=== PATIENT | female | born 1930 | race Caucasian/White ===

== ENCOUNTER → 2016-08-14 | Outpatient (CLI) | payer MEDICARE ==
--- NOTE | 2016-08-14 10:10 | RAD ---
EXAM DESCRIPTION: XR HIP 2 OR MORE VIEWSXR HIP 2 OR MORE VIEWS CLINICAL HISTORY: 86 y/o ,F, CLOSED FX OF FEMUR COMPARISON: None. IMPRESSION: Left hip arthroplasty. Negative for hardware failure, fracture or osteolysis. Electronically signed by: Chencho Kaminski MD 08/14/2016 10:09
--- NOTE | 2016-08-14 10:11 | RAD ---
EXAM DESCRIPTION: Pelvis series. CLINICAL HISTORY: Pelvic pain. COMPARISON: None. TECHNIQUE: One view was submitted for evaluation. FINDINGS: Left hip arthroplasty. There is considerable degenerative change of the right hip with joint space loss and osteophyte formation. Degenerative change of pubic symphysis also noted. No fracture, dislocation, or radiopaque foreign body is seen. Pelvic ring appears intact. Soft tissues are unremarkable. IMPRESSION: Considerable degenerative change of right hip and pubic symphysis. Electronically signed by: Chencho Kaminski MD 08/14/2016 10:10
== END ==
LOC: RAD 09:19
PROVIDERS: ATTEND Orthopaedic Surgery
DX: S72.002D Fracture of unspecified part of neck of left femur, subsequent encounter for closed fracture with routine healing (principal); Z96.642 Presence of left artificial hip joint

== ENCOUNTER → 2016-10-17 | Outpatient (CLI) | payer MEDICARE ==
--- NOTE | 2016-10-17 19:34 | RAD ---
Procedure: XR HIP 2 OR MORE VIEWS Exam Date: 10/17/2016 12:00 AM CDT Ordering Provider: HARMAN RIVERA Clinical Indication: CLOSED FX OF FEMUR Comparison: August 14, 2016 FINDINGS: Stable total hip arthroplasty with cemented femoral component. No evidence of periprosthetic fracture or osteolysis. Bone metal interface and bone cement interfaces are unremarkable. Mild heterotopic ossification about the greater trochanter. No soft tissue abnormality. Impression: Stable appearance of cemented bipolar left total hip arthroplasty in place without complication. Electronically signed by: James Enamorado MD 10/17/2016 7:34 PM CDT
--- NOTE | 2016-10-17 19:36 | RAD ---
Procedure: XR PELVIS 1-2 VIEWS Exam Date: 10/17/2016 12:00 AM CDT Ordering Provider: HARMAN RIVERA Clinical Indication: CLOSED FX OF FEMUR Comparison: August 14, 2016 FINDINGS: Stable left total hip arthroplasty. 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 There is no fracture or dislocation. The sacroiliac joints demonstrates mild osteoarthritis. The pubic symphysis again demonstrates mild degeneration. There are no lytic or sclerotic lesions. There are no suspicious calcifications. Impression: 1. Nonacute exam of the pelvis and each hip. Electronically signed by: James Enamorado MD 10/17/2016 7:35 PM CDT
== END ==
LOC: RAD 09:25
PROVIDERS: ATTEND Orthopaedic Surgery
DX: S72.002D Fracture of unspecified part of neck of left femur, subsequent encounter for closed fracture with routine healing (principal); Z96.642 Presence of left artificial hip joint

== ENCOUNTER → 2017-02-11 | Outpatient (CLI) | payer MEDICARE | END | disposition home or self-care (01) | LOC: NC 10:36 | PROVIDERS: ATTEND Family Medicine | DX: I11.0 Hypertensive heart disease with heart failure (principal); I50.30 Unspecified diastolic (congestive) heart failure; E78.5 Hyperlipidemia, unspecified; R30.0 Dysuria ==

== ENCOUNTER → 2017-02-25 | Outpatient (CLI) | payer MEDICARE | END | disposition home or self-care (01) | LOC: NC 15:55 | PROVIDERS: ATTEND Family Medicine | DX: R30.0 Dysuria (principal) ==

== ENCOUNTER 2017-07-20 16:49 | Emergency (ER) | payer MEDICARE ==
[2017-07-20] MEDS ORDERED: IPRATROPIUM/ALBUTEROL 3 ML VIAL NEB ONE (17:46)
--- NOTE | 2017-07-20 17:50 | ED.PDOC ---
History of Present Illness - General Source: patient, family Exam Limitations: no limitations - History of Present Illness Comments: PT PRESENTS TO THE ED WITH A 3 DAY HISTORY OF SUBJECTIVE FEVER, COUGH AND CONGESTION. PT REPORTS EXPOSURE TO INFLUENZA VIA HOME HEALTH AIDE. Cough Quality/Degree: productive cough Possible Cause: illness exposure Improving Factors: nothing Worsening Factors: nothing Associated Symptoms: cough, dizziness, nasal congestion, shortness of breath, wheezing Respiratory Risk Factors: exposure to illness <Patrick Leigh - Last Filed: 07/20/17 17:48> <James Del Toro - Last Filed: 07/20/17 19:59> - General Chief Complaint: Respiratory Problem Stated Complaint: COUGH AND CONGESTION Time Seen by Provider: 07/20/17 17:45 - History of Present Illness Allergies/Adverse Reactions: Allergies Penicillins Allergy (Verified 07/20/17 18:04) Home Medications: Ambulatory Orders Celecoxib [Celebrex] 200 mg PO DAILY 12/28/13 Albuterol Sulfate [Proair Hfa] 2 puff INH Q6H PRN 07/05/16 Atorvastatin Calcium [Lipitor] 10 mg PO DAILY 07/05/16 Furosemide Tab [Lasix Tab] 40 mg PO DAILY PRN 07/05/16 Metoprolol Succinate [Toprol Xl] 25 mg PO DAILY 07/05/16 Potassium Chloride Tab [Micro-K] 10 meq PO DAILY PRN 07/05/16 Valsartan [Diovan] 320 mg PO BEDTIME 07/05/16 Venlafaxine HCl [Effexor Xr] 3 ea PO DAILY 07/05/16 HYDROcodone 5MG/APAP 325MG [[place] 5/325] 1 - 2 ea PO Q4H PRN #0 tab 07/12/16 Rivaroxaban [Xarelto] 10 mg PO DAILY #29 tab 07/12/16 Azithromycin [Zithromax Z-Flako] 1 ea PO DAILY #1 pack 07/20/17 Dextromethorphan-Guaifenesin [Delsym Cough + Chest Ryan 5-100 mg/5Ml] 10 ml PO BID 5 Days #100 ml 07/20/17 Review of Systems - Review of Systems Constitutional: States: chills, fever, malaise EENTM: States: nose congestion. Denies: throat pain Respiratory: States: see HPI, cough, short of breath Cardiology: Denies: chest pain, palpitations Gastrointestinal/Abdominal: States: nausea. Denies: abdominal pain, diarrhea, vomiting Genitourinary: Denies: dysuria, frequency Musculoskeletal: Denies: joint pain, joint swelling Skin: Denies: dryness, lesions Neurological: Denies: headache, numbness <Patrick Leigh - Last Filed: 07/20/17 17:48> Past Medical History (General) - Patient Medical History Hx Seizures: No Hx Stroke: No Hx Asthma: No Hx of COPD: No Hx Congestive Heart Failure: Yes Hx Pacemaker: No Hx Hypertension: Yes Hx Diabetes: No Hx Renal Disease: No Hx Cancer: Yes Hx MRSA: No - Vaccination History Hx Tetanus, Diphtheria Vaccination: No Hx Influenza Vaccination: No Hx Pneumococcal Vaccination: Yes - Social History Hx Tobacco Use: No Hx Alcohol Use: No Hx Substance Use: No Hx Physical Abuse: No Hx Emotional Abuse: No <Patrick Leigh - Last Filed: 07/20/17 17:48> Family Medical History - Family History Mother Living Status: Hx Family Asthma: Yes Hx Family Congestive Heart Failure: Yes Hx Family Hypertension: Yes Hx Family Stroke: No Hx Cardiac Disease: Yes Hx Family Diabetes: No Hx Family Cancer: Yes <Patrick Leigh - Last Filed: 07/20/17 17:48> Physical Exam - Physical Exam General Appearance: Alert, Frail, No apparent distress ENT Exam: hearing grossly normal Respiratory: no respiratory distress, no accessory muscle use, wheezing Cardiovascular/Chest: regular rate, rhythm, no murmur Gastrointestinal/Abdominal: non tender, soft Extremity: non-tender, normal inspection Neurologic: alert, normal mood/affect, oriented x 3 Skin Exam: normal color, warm/dry <Patrick Leigh - Last Filed: 07/20/17 17:48> Progress - Progress Progress: 07/20/17 19:48 THE CHEST X RAY IS REPORTED NEGATIVE FOR ACUTE PROCESS. THE INFLUENZA TEST IS POSITIVE AND SHE CONTINUES WITH A NON PRODUCTIVE ,COUGH. HER WBC'S ARE ELEVATED AT 17,000. SHE WILL BE DISCHARGED TO F/U WITH HER IN TWO DAYS OR RETURN IF CONDITION WORSENS. <James Del Toro - Last Filed: 07/20/17 19:59> Departure <Patrick Leigh - Last Filed: 07/20/17 17:48> - Departure Diet: resume usual diet Activity: increase activity as tolerated <James Del Toro - Last Filed: 07/20/17 19:59> - Departure Clinical Impression: Influenza Acute bronchitis Qualifiers: Bronchitis organism: other organism Qualified Code(s): J20.8 - Acute bronchitis due to other specified organisms Disposition: Discharge to Home or Self Care Condition: Good Departure Forms: ED Discharge - Pt. Copy, Patient Portal Self Enrollment Instructions: Influenza Prescriptions: Azithromycin [Zithromax Z-Flako] 1 ea PO DAILY #1 pack Dextromethorphan-Guaifenesin [Delsym Cough + Chest Ryan 5-100 mg/5Ml] 10 ml PO BID 5 Days #100 ml Home Medications: Ambulatory Orders Celecoxib [Celebrex] 200 mg PO DAILY 12/28/13 Albuterol Sulfate [Proair Hfa] 2 puff INH Q6H PRN 07/05/16 Atorvastatin Calcium [Lipitor] 10 mg PO DAILY 07/05/16 Furosemide Tab [Lasix Tab] 40 mg PO DAILY PRN 07/05/16 Metoprolol Succinate [Toprol Xl] 25 mg PO DAILY 07/05/16 Potassium Chloride Tab [Micro-K] 10 meq PO DAILY PRN 07/05/16 Valsartan [Diovan] 320 mg PO BEDTIME 07/05/16 Venlafaxine HCl [Effexor Xr] 3 ea PO DAILY 07/05/16 HYDROcodone 5MG/APAP 325MG [[place] 5/325] 1 - 2 ea PO Q4H PRN #0 tab 07/12/16 Rivaroxaban [Xarelto] 10 mg PO DAILY #29 tab 07/12/16 Azithromycin [Zithromax Z-Flako] 1 ea PO DAILY #1 pack 07/20/17 Dextromethorphan-Guaifenesin [Delsym Cough + Chest Ryan 5-100 mg/5Ml] 10 ml PO BID 5 Days #100 ml 07/20/17
--- NOTE | 2017-07-20 18:00 | RAD ---
EXAM DESCRIPTION: Chest,1 View CLINICAL HISTORY: 87 years Female, COUGH/FEVER COMPARISON: July 05, 2016 TECHNIQUE: Portable AP view FINDINGS: Large retrocardiac hiatal hernia is again seen. No infiltrates have developed. The cardiac silhouette and mediastinum are unchanged. IMPRESSION: No significant changes. No infiltrates Electronically signed by: Yasir Romero 07/20/2017 5:59 PM LAST INSERTER
[2017-07-20] MEDS ORDERED: cefTRIAXone SODIUM 1 GM VIAL IM ONE (19:51)
[2017-07-20] MEDS ORDERED: LIDOCAINE 1% 10 ML VIAL INJ ONE (19:56)
[2017-07-20 20:27] VITALS: BP 160/82; TEMP 101; O2SAT 92
== END 2017-07-20 20:25 | disposition home or self-care (01) ==
LOC: ER 16:49
DX: J11.1 Influenza due to unidentified influenza virus with other respiratory manifestations (principal); J20.9 Acute bronchitis, unspecified; I11.0 Hypertensive heart disease with heart failure; I10 Essential (primary) hypertension; Z85.9 Personal history of malignant neoplasm, unspecified; Z88.0 Allergy status to penicillin
CPT/HCPCS: 36415; 71010; 80053; 85025; 87502; 94640; 94760; J0696; J7620

== ENCOUNTER 2017-08-22 18:28 | Emergency (ER) | payer MEDICARE ==
[2017-08-22 18:47] VITALS: TEMP 98.6; O2SAT 96
[2017-08-22] MEDS ORDERED: LIDOCAINE 1% W/ EPINEPHRINE 20 ML VIAL INJ ONE (19:12)
--- NOTE | 2017-08-22 19:16 | CT ---
EXAM: Head CLINICAL INDICATION: 87-year-old female status post fall with forehead laceration. COMPARISON: None. TECHNIQUE: CT brain without contrast. This exam was performed according to our departmental dose optimization program which includes use of automated exposure control, adjustment of the mA and/or kV according to patient size and/or use of iterative reconstruction technique. FINDINGS: Examination findings are slightly limited by motion artifact. Multifocal regions of patchy hypoattenuation are present in a subcortical and periventricular deep white matter distribution, nonspecific; however, most likely represent small vessel ischemic disease, age indeterminate. The ventricles, sulci, and cisterns are symmetric and unremarkable. The treviño-white matter differentiation is preserved. There is no mass effect, midline shift, intra- or extra-axial fluid collection/acute hemorrhage. The osseous structures are unremarkable. The paranasal sinuses reveal layering fluid within the dependent LEFT maxillary sinus and mastoid air cells are clear. Dermal irregularity and soft tissue swelling of the forehead. IMPRESSION: 1. No acute intracranial abnormalities. Nonspecific white matter change most likely small vessel ischemic disease, age indeterminate. 2. CT is insensitive for early evaluation of acute stroke. If there is clinical concern for acute ischemia, an MRI may be considered. Electronically signed by: Sydni Corrales MD 08/22/2017 7:15 PM [employer]THER[employer]WORK ARCHITECT
[2017-08-22] MEDS ORDERED: SULFA/TRIMETH 800/160 (DS) TAB 1 EA TAB PO ONE (19:28)
[2017-08-22] MEDS ORDERED: TETANUS,DIPHTHERIA,PERTUSSIS 1 EA SYG IM ONE (19:28)
--- NOTE | 2017-08-22 19:30 | ED.PDOC ---
History of Present Illness - General Chief Complaint: Laceration Stated Complaint: Laceration to forehead Time Seen by Provider: 08/22/17 19:09 Source: patient Exam Limitations: no limitations - History of Present Illness Initial Comments: the patient is an 87-year-old female who tripped and fell while carrying a child in her house today. The child apparently landed fine but the patient hit her forehead and sustained a 1 inch by half inch laceration to the frontal scalp i.e. the forehead. No loss of consciousness. This occurred immediately prior to arrival. No other injuries. She also has asmall ones in the laceration to the bridge of her nose that is not bleeding. She did have some epistaxis at first but that is not bleeding. Her distal nasal septum at least appears to be fairly straight but there is some mild swelling. She is alert and oriented and in no acute distress. Timing/Duration: 1/2 hour Severity: moderate Improving Factors: nothing Worsening Factors: nothing Associated Symptoms: denies symptoms Allergies/Adverse Reactions: Allergies Penicillins Allergy (Verified 07/24/17 17:13) Rash Home Medications: Ambulatory Orders Celecoxib [Celebrex] 200 mg PO DAILY 12/28/13 Furosemide Tab [Lasix Tab] 40 mg PO TUFR 07/05/16 Metoprolol Succinate [Toprol Xl] 25 mg PO DAILY 07/05/16 Potassium Chloride Tab [Micro-K] 10 meq PO TUFR 07/05/16 Valsartan [Diovan] 320 mg PO BEDTIME 07/05/16 Venlafaxine HCl [Effexor Xr] 3 ea PO DAILY 07/05/16 Rosuvastatin Calcium [Crestor] 20 mg PO DAILY 07/24/17 Sulfa/Trimeth 800/160 (Ds) Tab [Bactrim DS Tab] 1 ea PO DAILY #5 tab 08/22/17 Review of Systems - Review of Systems Constitutional: States: no symptoms reported EENTM: States: no symptoms reported Respiratory: States: no symptoms reported Cardiology: States: no symptoms reported Gastrointestinal/Abdominal: States: no symptoms reported Genitourinary: States: no symptoms reported Musculoskeletal: States: no symptoms reported Skin: States: see HPI Neurological: States: headache Endocrine: States: no symptoms reported All other Systems: No Change from Baseline Past Medical History (General) - Patient Medical History Hx Seizures: No Hx Stroke: No Hx Asthma: No Hx of COPD: No Hx Congestive Heart Failure: Yes Hx Pacemaker: No Hx Hypertension: Yes Hx Diabetes: No Hx Renal Disease: No Hx Cancer: Yes - Breast Hx MRSA: No Surgical History: Hysterectomy, other - Vaccination History Hx Tetanus, Diphtheria Vaccination: No Hx Influenza Vaccination: No Hx Pneumococcal Vaccination: Yes - Social History Hx Tobacco Use: No Hx Alcohol Use: No Hx Substance Use: No Hx Physical Abuse: No Hx Emotional Abuse: No Family Medical History - Family History Mother Living Status: Hx Family Asthma: Yes Hx Family Congestive Heart Failure: Yes Hx Family Hypertension: Yes Hx Family Stroke: No Hx Cardiac Disease: Yes Hx Family Diabetes: No Hx Family Cancer: Yes Physical Exam - Physical Exam General Appearance: Alert, No apparent distress Eye Exam: bilateral normal Ears, Nose, Throat: hearing grossly normal, normal ENT inspection Neck: full range of motion, supple Respiratory: lungs clear, normal breath sounds, no respiratory distress, no accessory muscle use Cardiovascular/Chest: normal peripheral pulses, regular rate, rhythm, no edema Peripheral Pulses: radial,right: 2+, radial,left: 2+, dorsalis pedis,right: 2+, dorsalis pedis,left: 2+ Rectal Exam: deferred Back Exam: normal inspection Extremity: non-tender, normal inspection, no pedal edema, normal capillary refill Neurologic: [employer] II-XII nml as tested, alert, normal mood/affect, oriented x 3 Skin Exam: normal color - aceration is present in present illness Comments: Vital Signs - 24 hr 08/22/17 18:38 Temperature 98.6 F Pulse Rate [ 61 Right Radial] Respiratory 18 Rate Blood Pressure 160/68 [Right Arm] O2 Sat by Pulse 96 Oximetry Progress - Progress Progress: 08/22/17 19:30 the patient is a 87-year-old female presenting after a fall with a laceration to her central forehead. Head CT shows no evidence of inner cranial pathology or skull fracture. No clinical evidence is obvious of a concussion. After risk and benefits were explained the patient agreed to proceed with repair. 250 cc of sterile saline were used for irrigation. 2 cc of lidocaine with epinephrine were used for local anesthetic. 4 simple sutures of 4-0 Ethilon were used for reapproximation. Sutures need to come out in 7-10 days. estimated blood loss is less than 10 cc. The patient will be placed on Bactrim daily for 5 days primarily for prophylaxis. First dose was given here today along with a tetanus shot. ER warnings were given for any significant worsening. Departure - Departure Clinical Impression: Accidental laceration Disposition: Discharge to Home or Self Care Condition: Fair Departure Forms: ED Discharge - Pt. Copy, Patient Portal Self Enrollment Instructions: DI for Laceration Repair, DI for Laceration Repair -- Simple Diet: regular diet Activity: increase activity as tolerated Referrals: Danilo Leger MD [Primary Care Provider] - 1-2 Weeks Prescriptions: Sulfa/Trimeth 800/160 (Ds) Tab [Bactrim DS Tab] 1 ea PO DAILY #5 tab Home Medications: Ambulatory Orders Celecoxib [Celebrex] 200 mg PO DAILY 12/28/13 Furosemide Tab [Lasix Tab] 40 mg PO TUFR 07/05/16 Metoprolol Succinate [Toprol Xl] 25 mg PO DAILY 07/05/16 Potassium Chloride Tab [Micro-K] 10 meq PO TUFR 07/05/16 Valsartan [Diovan] 320 mg PO BEDTIME 07/05/16 Venlafaxine HCl [Effexor Xr] 3 ea PO DAILY 07/05/16 Rosuvastatin Calcium [Crestor] 20 mg PO DAILY 07/24/17 Sulfa/Trimeth 800/160 (Ds) Tab [Bactrim DS Tab] 1 ea PO DAILY #5 tab 08/22/17 Additional Instructions: the patient is a 87-year-old female presenting after a fall with a laceration to her central forehead. Head CT shows no evidence of inner cranial pathology or skull fracture. No clinical evidence is obvious of a concussion. After risk and benefits were explained the patient agreed to proceed with repair. 250 cc of sterile saline were used for irrigation. 2 cc of lidocaine with epinephrine were used for local anesthetic. 4 simple sutures of 4-0 Ethilon were used for reapproximation. Sutures need to come out in 7-10 days. estimated blood loss is less than 10 cc. The patient will be placed on Bactrim daily for 5 days primarily for prophylaxis. First dose was given here today along with a tetanus shot. ER warnings were given for any significant worsening.
[2017-08-22 19:53] VITALS: BP 157/97
== END 2017-08-22 19:59 | disposition home or self-care (01) ==
LOC: ER 18:28
DX: S01.81XA Laceration without foreign body of other part of head, initial encounter (principal); I11.0 Hypertensive heart disease with heart failure; I50.9 Heart failure, unspecified; Z85.3 Personal history of malignant neoplasm of breast; Z88.0 Allergy status to penicillin; Z79.899 Other long term (current) drug therapy; W01.0XXA Fall on same level from slipping, tripping and stumbling without subsequent striking against object, initial encounter; Y92.009 Unspecified place in unspecified non-institutional (private) residence as the place of occurrence of the external cause

== ENCOUNTER 2017-08-23 14:43 | Emergency (ER) | payer MEDICARE ==
[2017-08-23] MEDS ORDERED: PROMETHAZINE HCL INJ 25 MG/ML VIAL IM ONE ×2 (15:02→15:04)
--- NOTE | 2017-08-23 15:02 | ED.PDOC ---
History of Present Illness - General Chief Complaint: General Stated Complaint: Nausea, vomiting after fall last night Time Seen by Provider: 08/23/17 14:50 Source: patient, family - History of Present Illness Initial Comments: Megan De La O 87 y/o female brought by daughter with nausea/vomiting after slipping on the wooden floor and fell face down.She was seen here initially after incident and had suteures placed on skin wound forehead and Head CT-done no acute findings noted .But today had nausea and vomiting and feels dizzy. Timing/Duration: 24 hours Severity: moderate Improving Factors: nothing, eating Associated Symptoms: nausea/vomiting Allergies/Adverse Reactions: Allergies Penicillins Allergy (Verified 08/23/17 14:56) Rash Home Medications: Ambulatory Orders Celecoxib [Celebrex] 200 mg PO DAILY 12/28/13 Furosemide Tab [Lasix Tab] 40 mg PO TUFR 07/05/16 Metoprolol Succinate [Toprol Xl] 25 mg PO DAILY 07/05/16 Potassium Chloride Tab [Micro-K] 10 meq PO TUFR 07/05/16 Valsartan [Diovan] 320 mg PO BEDTIME 07/05/16 Venlafaxine HCl [Effexor Xr] 3 ea PO DAILY 07/05/16 Rosuvastatin Calcium [Crestor] 20 mg PO DAILY 07/24/17 Sulfa/Trimeth 800/160 (Ds) Tab [Bactrim DS Tab] 1 ea PO DAILY #5 tab 08/22/17 Meclizine HCl [Meclizine 25] 25 mg PO Q6HRS PRN #30 tab 08/23/17 Ondansetron [Zofran Odt] 4 mg PO Q8HRS PRN #10 tab 08/23/17 Review of Systems - Review of Systems Constitutional: States: no symptoms reported EENTM: States: no symptoms reported Respiratory: States: no symptoms reported Gastrointestinal/Abdominal: States: no symptoms reported Genitourinary: States: no symptoms reported Neurological: States: see HPI All other Systems: Reviewed and Negative, No Change from Baseline Past Medical History (General) - Patient Medical History Hx Seizures: No Hx Stroke: No Hx Asthma: No Hx of COPD: No Hx Congestive Heart Failure: Yes Hx Pacemaker: No Hx Hypertension: Yes Hx Diabetes: No Hx Renal Disease: No Hx Cancer: Yes - Breast Hx MRSA: No Surgical History: other - mastectomy bilateral - Vaccination History Hx Tetanus, Diphtheria Vaccination: No Hx Influenza Vaccination: No Hx Pneumococcal Vaccination: Yes - Social History Hx Tobacco Use: No Hx Alcohol Use: No Hx Substance Use: No Hx Physical Abuse: No Hx Emotional Abuse: No - Activities of Daily Living Grooming Ability: Independent Eating (Feeding) Ability: Independent Toileting Ability: Independent Family Medical History - Family History Mother Living Status: Hx Family Asthma: Yes Hx Family Congestive Heart Failure: Yes Hx Family Hypertension: Yes Hx Family Stroke: Yes - dad age 90 Hx Cardiac Disease: Yes Hx Family Diabetes: No Hx Family Cancer: Yes Physical Exam - Physical Exam General Appearance: Alert, Comfortable, No apparent distress Eye Exam: bilateral normal Ears, Nose, Throat: hearing grossly normal, normal ENT inspection, normal pharynx Neck: full range of motion, supple, normal inspection Respiratory: chest non-tender, lungs clear, normal breath sounds Cardiovascular/Chest: normal peripheral pulses, regular rate, rhythm, no murmur Peripheral Pulses: radial,right: 2+, radial,left: 2+ Gastrointestinal/Abdominal: normal bowel sounds, soft Back Exam: no CVA tenderness, no vertebral tenderness Extremity: no pedal edema, no calf tenderness Neurologic: no motor/sensory deficits, alert, oriented x 3 Skin Exam: other - ecchymosis right lower lid and sututred laceration forehead Progress - EKG/XRAY/CT CT Ordered: Yes - no acute abnormality Departure - Departure Clinical Impression: Fall Qualifiers: Encounter type: subsequent encounter Qualified Code(s): W19.XXXD - Unspecified fall, subsequent encounter Contusion of head Qualifiers: Encounter type: initial encounter Contusion of head detail: other part of head Qualified Code(s): S00.83XA - Contusion of other part of head, initial encounter Concussion Qualifiers: Encounter type: initial encounter Loss of consciousness presence/duration: without LOC Qualified Code(s): S06.0X0A - Concussion without loss of consciousness, initial encounter Nausea & vomiting Qualifiers: Vomiting type: unspecified Vomiting Intractability: unspecified Qualified Code( s): R11.2 - Nausea with vomiting, unspecified Time of Disposition: 16:15 Disposition: Discharge to Home or Self Care Condition: Fair Departure Forms: ED Discharge - Pt. Copy, Patient Portal Self Enrollment Instructions: DI for Postconcussion Syndrome, Concussion, DI for Concussion Diet: other - small frequent meal Referrals: Danilo Leger MD [Primary Care Provider] - 1-2 Weeks Prescriptions: Meclizine HCl [Meclizine 25] 25 mg PO Q6HRS PRN #30 tab PRN Reason: Dizziness Ondansetron [Zofran Odt] 4 mg PO Q8HRS PRN #10 tab PRN Reason: Nausea Home Medications: Ambulatory Orders Celecoxib [Celebrex] 200 mg PO DAILY 12/28/13 Furosemide Tab [Lasix Tab] 40 mg PO TUFR 07/05/16 Metoprolol Succinate [Toprol Xl] 25 mg PO DAILY 07/05/16 Potassium Chloride Tab [Micro-K] 10 meq PO TUFR 07/05/16 Valsartan [Diovan] 320 mg PO BEDTIME 07/05/16 Venlafaxine HCl [Effexor Xr] 3 ea PO DAILY 07/05/16 Rosuvastatin Calcium [Crestor] 20 mg PO DAILY 07/24/17 Sulfa/Trimeth 800/160 (Ds) Tab [Bactrim DS Tab] 1 ea PO DAILY #5 tab 08/22/17 Meclizine HCl [Meclizine 25] 25 mg PO Q6HRS PRN #30 tab 08/23/17 Ondansetron [Zofran Odt] 4 mg PO Q8HRS PRN #10 tab 08/23/17 Additional Instructions: Follow up with primary Md 08/24/2017 as needed
[2017-08-23] MEDS ORDERED: DEXAMETHASONE INJ 4 MG/ML VIAL IM ONE (15:04)
--- NOTE | 2017-08-23 15:54 | CT ---
EXAM DESCRIPTION: Head CLINICAL HISTORY: head contusion/NV COMPARISON: August 22 2016 TECHNIQUE: Contiguous axial images of the brain were obtained without the administration of intravenous contrast.This exam was performed according to our departmental dose-optimization program, which includes automated exposure control, adjustment of the mA and/or kV according to patient size and/or use of iterative reconstruction technique. FINDINGS: There is no acute intracranial hemorrhage or mass effect. Areas of low attenuation in the periventricular and subcortical white matter are nonspecific but suggestive of small vessel disease. There is generalized atrophy. Ventricular system is within normal limits. There is adequate treviño-white matter differentiation. There is no skull fracture. There is atherosclerosis. Fluid level within the left maxillary sinus could be secondary to acute sinusitis changes. There is also patchy opacification of the left frontal sinus. Soft tissue swelling is noted at the forehead level. IMPRESSION: No acute intracranial abnormalities. Electronically signed by: Bobby Lewis MD 08/23/2017 3:53 PM [facility]
[2017-08-23 18:10] VITALS: TEMP 97.8; O2SAT 94
== END 2017-08-23 16:20 | disposition home or self-care (01) ==
LOC: ER 14:43
DX: S06.0X0D Concussion without loss of consciousness, subsequent encounter (principal); S00.11XD Contusion of right eyelid and periocular area, subsequent encounter; I11.0 Hypertensive heart disease with heart failure; I50.9 Heart failure, unspecified; Z85.3 Personal history of malignant neoplasm of breast; Z90.13 Acquired absence of bilateral breasts and nipples; W01.0XXD Fall on same level from slipping, tripping and stumbling without subsequent striking against object, subsequent encounter
CPT/HCPCS: 70450; J1100; J2550

== ENCOUNTER → 2018-09-13 | Outpatient (CLI) | payer MEDICARE ==
--- NOTE | 2018-09-14 09:50 | MRI ---
Study: MRI of the Left Hip. Indication: HIP PAIN Technique: Multiplanar, multi sequence MRI of the left hip was obtained without intravenous contrast. Comparison: None. Findings: Left total hip arthroplasty noted with significant susceptibility artifact despite metal artifact reduction techniques. This makes evaluation for periprosthetic fracture and osteolysis markedly difficult. No gross periprosthetic fluid collection identified. 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 No acute fracture or osteonecrosis. Lower lumbar disc disease. Tendinosis bilateral hamstring tendon origins. No acute high-grade pelvic tendon tear. As best noted on axial STIR image 15 within the posteromedial right acetabular wall there is a 9 mm ovoid STIR hyperintense and T1 hypointense indeterminate lesion. Impression: Left total hip arthroplasty with pronounced susceptibility artifact despite metal artifact reduction techniques. No gross periprosthetic fracture or periprosthetic fluid collection identified. 9 mm indeterminate lesion within the posteromedial right acetabular wall. This could reflect a subchondral cyst, however no definite continuity to the cortex identified. A small marrow replacing lesion cannot be excluded. Correlation with bone scan with SPECT imaging recommended. Additional findings as above. Electronically signed by: Shaquille Casey MD 09/14/2018 9:47 AM [facility]
== END ==
LOC: MRI 14:00
PROVIDERS: ATTEND Family Medicine
DX: M25.552 Pain in left hip (principal); Z96.642 Presence of left artificial hip joint

== ENCOUNTER → 2019-02-25 | Outpatient (CLI) | payer MEDICARE | LOC: NC 13:01 | PROVIDERS: ATTEND Family Medicine | DX: I11.0 Hypertensive heart disease with heart failure (principal); I50.9 Heart failure, unspecified; E03.9 Hypothyroidism, unspecified; E78.5 Hyperlipidemia, unspecified ==

== ENCOUNTER → 2019-05-11 | Outpatient (CLI) | payer MEDICARE ==
--- NOTE | 2019-05-11 12:57 | CT ---
PROVIDED CLINICAL HISTORY/REASON FOR EXAM: ACUTE POST TRAUMATIC HEADACHE TECHNIQUE: Volumetric CT data of the brain was obtained without intravenous contrast. This exam was performed according to our departmental dose-optimization program, which includes automated exposure control, adjustment of the mA and/or kV according to patient size and/or use of iterative reconstruction technique. COMPARISON: 08/23/2017 FINDINGS: Age-related volume loss and chronic small vessel ischemic change. Septum pellucidum and third ventricle are midline. No acute infarction is evident by CT. No acute hemorrhage is present. No mass or mass effect is present. Frontal scalp soft tissue swelling/hematoma. No calvarial fracture identified. The visualized paranasal sinuses are unremarkable. IMPRESSION: 1. No acute intracranial hemorrhage or infarction. 2. Frontal scalp soft tissue swelling/hematoma. Electronically signed by: Gideon Armenta MD 05/11/2019 12:55 PM CDT
== END ==
LOC: CT 12:28
PROVIDERS: ATTEND Physician Assistant
DX: G44.319 Acute post-traumatic headache, not intractable (principal); S00.03XA Contusion of scalp, initial encounter

== ENCOUNTER → 2019-06-28 | Outpatient (CLI) | payer MEDICARE | LOC: NC 11:28 | PROVIDERS: ATTEND Family Medicine | DX: E78.5 Hyperlipidemia, unspecified (principal) ==

== ENCOUNTER → 2020-05-22 | Outpatient (CLI) | payer MEDICARE | LOC: GMAE 16:50 | PROVIDERS: ATTEND Family Medicine | DX: E03.9 Hypothyroidism, unspecified (principal); E78.2 Mixed hyperlipidemia; I10 Essential (primary) hypertension ==

== ENCOUNTER 2020-07-04 13:04 | Inpatient (IN) | payer MEDICARE ==
--- NOTE | 2020-07-04 13:20 | ED.PDOC ---
History of Present Illness - General Chief Complaint: Neuro Symptoms/Deficits Stated Complaint: possible stroke Time Seen by Provider: 07/04/20 13:18 Source: family - daughter, EMS Exam Limitations: clinical condition - History of Present Illness Initial Comments: PATIENT FOUND UNRESPONSIVE WITH RIGHT SIDED NEGLECT, VERBALLY NON-RESPONSIVE, RIGHT SIDED HEMIPLEGIA AT NOON TODAY, LAST KNOWN NORMAL WAS 23OO LAST NIGHT. Severity: severe Improving Factors: nothing Worsening Factors: nothing Allergies/Adverse Reactions: Allergies Penicillins Allergy (Verified 08/23/17 14:56) Rash Home Medications: Ambulatory Orders Celecoxib [Celebrex] 200 mg PO DAILY 12/28/13 Furosemide Tab [Lasix Tab] 40 mg PO TUFR 07/05/16 Metoprolol Succinate [Toprol Xl] 25 mg PO DAILY 07/05/16 Potassium Chloride Tab [Micro-K] 10 meq PO TUFR 07/05/16 Valsartan [Diovan] 320 mg PO BEDTIME 07/05/16 Venlafaxine HCl [Effexor Xr] 3 ea PO DAILY 07/05/16 Rosuvastatin Calcium [Crestor] 20 mg PO DAILY 07/24/17 Sulfa/Trimeth 800/160 (Ds) Tab [Bactrim DS Tab] 1 ea PO DAILY #5 tab 08/22/17 Meclizine HCl [Meclizine 25] 25 mg PO Q6HRS PRN #30 tab 08/23/17 Ondansetron [Zofran Odt] 4 mg PO Q8HRS PRN #10 tab 08/23/17 Review of Systems - Review of Systems Unable to Obtain Due To: condition, dementia Past Medical History (General) - Patient Medical History Hx Seizures: No Hx Stroke: No Hx Asthma: No Hx of COPD: No Hx Congestive Heart Failure: Yes Hx Pacemaker: No Hx Hypertension: Yes Hx Diabetes: No Hx Renal Disease: No Hx Cancer: Yes - Breast Hx MRSA: No - Vaccination History Hx Tetanus, Diphtheria Vaccination: No Hx Influenza Vaccination: No Hx Pneumococcal Vaccination: Yes - Social History Hx Tobacco Use: No Hx Alcohol Use: No Hx Substance Use: No Hx Physical Abuse: No Hx Emotional Abuse: No Family Medical History - Family History Mother Living Status: Hx Family Asthma: Yes Hx Family Congestive Heart Failure: Yes Hx Family Hypertension: Yes Hx Family Stroke: Yes - dad age 90 Hx Cardiac Disease: Yes Hx Family Diabetes: No Hx Family Cancer: Yes Physical Exam - Physical Exam General Appearance: Other - opens eyes to command, 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, spontaneousl movement of left extremeties only Eye Exam: bilateral normal - 4-5mm fixed ENT Exam: normal ENT inspection Neck: non-tender Respiratory: chest non-tender, lungs clear, normal breath sounds, no respiratory distress, no accessory muscle use Cardiovascular/Chest: normal peripheral pulses, regular rate, rhythm, no edema, no gallop Gastrointestinal/Abdominal: normal bowel sounds, non tender, soft, no organomegaly Back Exam: normal inspection, no CVA tenderness, no vertebral tenderness Extremities Exam: non-tender, no evidence of injury, no edema Mental Status: disoriented x 3, lethargic call center specialist Exam: other - right sided hemiplegia, right sided neglect Skin Exam: normal color, warm/dry, cyanosis Progress - Progress Progress: 07/04/20 18:08 DISCUSSED WITH TELENEUROLOGY, SEE CONSULT, RECOMMENDATION IS OBSERVATION AND MRI, NO FURTHER INTERVENTION IS INDICATED AT THIS TIME. CONSULTED WITH DILCIA Sotomayor WILL ADMIT RECOMMENDED BY TELENEUROLOGY, SUPPORTIVE CARE, CONSULTATION OF PT OT AND ST INDICATED. Departure - Departure Clinical Impression: Acute CVA (cerebrovascular accident) Time of Disposition: 15:00 Disposition: Admit Patient Condition: Poor Home Medications: Ambulatory Orders Celecoxib [Celebrex] 200 mg PO DAILY 12/28/13 Furosemide Tab [Lasix Tab] 40 mg PO TUFR 07/05/16 Metoprolol Succinate [Toprol Xl] 25 mg PO DAILY 07/05/16 Potassium Chloride Tab [Micro-K] 10 meq PO TUFR 07/05/16 Valsartan [Diovan] 320 mg PO BEDTIME 07/05/16 Venlafaxine HCl [Effexor Xr] 3 ea PO DAILY 07/05/16 Rosuvastatin Calcium [Crestor] 20 mg PO DAILY 07/24/17 Sulfa/Trimeth 800/160 (Ds) Tab [Bactrim DS Tab] 1 ea PO DAILY #5 tab 08/22/17 Meclizine HCl [Meclizine 25] 25 mg PO Q6HRS PRN #30 tab 08/23/17 Ondansetron [Zofran Odt] 4 mg PO Q8HRS PRN #10 tab 08/23/17
--- NOTE | 2020-07-04 13:38 | CT ---
EXAM DESCRIPTION: Head: Computed Tomography. CLINICAL HISTORY: possible stroke,right sided weakness COMPARISON: CT scan of the head without contrast April 2019 TECHNIQUE: Non-helical axial scans through the skull and brain, at 5.0 x 21 mm intervals, non-contrast. Coronal and sagittal 2.0 mm reconstructions. Total Exam DLP: 753 mGy-cm. This exam was performed according to our departmental dose-optimization program which includes automated exposure control, adjustment of the mA and/or kV according to patient size and/or use of iterative reconstruction technique; to reduce radiation dose to as low as reasonably achievable (ALARA). Technically difficult study due to patient mental status: Headshaking and moving head within the CT head cradle. FINDINGS: No intra-axial hemorrhage, no mass-effect, and no midline shift. Minimal bilateral periventricular low-density is stable. No abnormal radiodense material in the brain parenchyma. Vascular calcifications anterior and posterior circulations; physiologic calcifications in the pineal gland and choroid plexus. No effacement or displacement of the ventricles, CSF spaces, or subdural spaces. No extra axial fluid collection or hemorrhage. No gross abnormalities of the bony calvarium. Included paranasal sinuses and mastoid air cells are well - aerated. IMPRESSION: 1. No hemorrhage, no mass effect, no midline shift. Stable since the prior head CT scan noncontrast April 2019. Technically limited as described above. 2. CT scans are insensitive for detecting small CVAs in the first 24 hours after onset. Evaluation of the brain stem is also limited. If symptoms persist, consider NON-EMERGENT MRI scan of the brain with diffusion imaging. Electronically signed by: Amanuel Duncan MD 07/04/2020 1:36 PM [facility]
[2020-07-04] MEDS ORDERED: SODIUM CHLORIDE 0.9% 1000ML 1,000 ML ONE (14:18)
[2020-07-04] MEDS ORDERED: SODIUM CHLORIDE 0.9% 1000ML 1,000 ML IVS ONE (14:21)
[2020-07-04] MEDS ORDERED: MIDAZOLAM INJ 5 MG/5 ML VIAL ONE (14:36)
--- NOTE | 2020-07-04 14:54 | RAD ---
Procedure: XR CHEST 1 VIEW Exam Date: 07/04/2020 Ordering Provider: Tavo Aguiar Clinical Indication: confusion Comparison: 07/24/2017 Findings: Borderline cardiomegaly. No focal lung consolidation. No pleural effusion. No pneumothorax. No acute osseous abnormality. Large hiatal hernia. Impression: 1. No acute abnormality in the chest. 2. Large hiatal hernia. Electronically signed by: Jayden Dewitt MD 07/04/2020 2:53 PM [employer]
--- NOTE | 2020-07-04 15:26 | CT ---
EXAM DESCRIPTION: CTA Head (accession [id number]), CTA Neck (accession [id number]) CLINICAL HISTORY: 89 years, Female, CVA COMPARISON: CT head July 04, 2020 TECHNIQUE: Rapid bolus administration of 100 mL of IV contrast was performed with thin-section axial scanning of the brain performed in a dynamic fashion. Reconstructed multiplanar and MIP images created on a separate dedicated workstation are reviewed along with the source axial images and stored in the patient's medical record. FINDINGS: Very large hiatal hernia. Pulmonary apices are clear. Excellent arterial enhancement. Very minimal atherosclerosis. No stenosis. No dissection. Both vertebrals patent with codominance. Balanced anterior, middle, posterior cerebral circulation. No aneurysm. No vasculitis. No large vessel occlusion. IMPRESSION: Negative CTA of the head and neck This exam was performed according to our departmental dose-optimization program, which includes automated exposure control, adjustment of the mA and/or kV according to patient size and/or use of iterative reconstruction technique. Electronically signed by: Erwin Black MD 07/04/2020 3:25 PM [facility]
--- NOTE | 2020-07-04 15:27 | CT ---
EXAM DESCRIPTION: CTA Head (accession [id number]), CTA Neck (accession [id number]) CLINICAL HISTORY: 89 years, Female, CVA COMPARISON: CT head July 04, 2020 TECHNIQUE: Rapid bolus administration of 100 mL of IV contrast was performed with thin-section axial scanning of the brain performed in a dynamic fashion. Reconstructed multiplanar and MIP images created on a separate dedicated workstation are reviewed along with the source axial images and stored in the patient's medical record. FINDINGS: Very large hiatal hernia. Pulmonary apices are clear. Excellent arterial enhancement. Very minimal atherosclerosis. No stenosis. No dissection. Both vertebrals patent with codominance. Balanced anterior, middle, posterior cerebral circulation. No aneurysm. No vasculitis. No large vessel occlusion. IMPRESSION: Negative CTA of the head and neck This exam was performed according to our departmental dose-optimization program, which includes automated exposure control, adjustment of the mA and/or kV according to patient size and/or use of iterative reconstruction technique. Electronically signed by: Erwin Black MD 07/04/2020 3:25 PM [facility]
[2020-07-04] MEDS ORDERED: SODIUM CHLORIDE 0.9% (FLUSH) 10 ML SYG IV PRN (16:37)
--- NOTE | 2020-07-04 16:56 | HP ---
SUPERVISING PHYSICIAN: Sukhjinder Martines MD CHIEF COMPLAINT: Stroke. HISTORY OF PRESENT ILLNESS: This is an 89-year-old female who came to the Emergency Room after being found unresponsive by her granddaughter. Apparently, she was last seen normal about 11 o'clock last night. Today, she was found with a right sided facial droop, unable to move her right side and not conversing. She was seen in the Emergency Room and evaluated. She had a CT scan of the head which was pretty much unremarkable. CT angio of the neck and head did not reveal any retrievable thrombus. Due to being outside the window for thrombolytics, she was not administered tPA. Telemedicine was done to consult with a neurologist regarding her care. Recommendations were for admission for stroke protocol, target systolic blood pressure less than 220, CT angiogram of the head and neck, which were already done, and MRI of the brain tomorrow. Echocardiogram was recommended as well. NPO status until swallowing evaluation could be done, PT/OT evaluations and aspirin 81 mg daily along with SCDs and DVT prophylaxis. The family was updated her condition. They made her DNR, but want to see if she regains any of her neurological status over the next 48 hours or so and after that, likely progress to a hospice status, but we are not quite there yet. At time of examination, the patient is unresponsive, laying on her side, not moving her right side at all, right facial droop, unable to speak, but does open eyes to voice. PAST MEDICAL HISTORY: 1. Hypertension. 2. Hyperlipidemia. 3. Breast cancer. 4. Anxiety disorder. 5. Arthritis. 6. Lumbar disc disease. 7. Irritable bowel syndrome. PAST SURGICAL HISTORY: 1. Left hip hemiarthroplasty. 2. Appendectomy. 3. Hysterectomy. 4. D&C x2. 5. Tonsillectomy and adenoidectomy. 6. Bilateral mastectomies. MEDICATIONS: Please see medication reconciliation list once verified in the computer. ALLERGIES: PENICILLIN. FAMILY HISTORY: Mother of congestive heart failure, hypertension and colon issues. Father's history is unknown. SOCIAL HISTORY: The patient lives in [place]. She is . No smoking, no alcohol, no illicit drugs. REVIEW OF SYSTEMS: Cannot be obtained from the patient due to her mental status. PHYSICAL EXAMINATION: VITAL SIGNS: Blood pressure 140/70, heart rate 64, respiratory rate 16, temperature 96.0, oxygen saturation 96%. GENERAL: Ms. De La O is an 89-year-old female who is ill in appearance, but in no active distress. NEUROLOGIC: The patient is lethargic, opens eyes to voice briefly, does not speak. She has a right sided facial droop. She does withdrawn to painful stimuli on the left side. She does not follow commands. No movement on the right side. LUNGS: Clear to auscultation bilaterally. CARDIOVASCULAR: Irregular rate and rhythm, appears to be a sinus arrhythmia. ABDOMEN: Soft. Positive bowel sounds. EXTREMITIES: Lower extremities with no edema. LABORATORY: White count 13.6, hemoglobin 13.9, hematocrit 41.1, platelet count 538, neutrophils 88%. Chemistry unremarkable except for elevated BUN and creatinine of 35 and 1.75 respectively. Lactate normal. Urinalysis with no evidence of urinary tract infection. IMPRESSION: 1. Acute cerebrovascular accident of likely left middle cerebral artery distribution. 2. Hypertension. 3. Altered mental status secondary to #1. 4. Acute kidney injury. 5. History of breast cancer status post mastectomy. PLAN: The patient will be admitted to the hospital with stroke protocol with plan as lined out by tele-neurology consultation. The plan is as stated above in the history of present illness with target systolic blood pressure less than 220. We will get an ESR, hemoglobin A1c, lipid panel, MRI in the morning along with echocardiogram. We will maintain NPO status, however, I am going to place a Dobbhoff feeding tube to administer medications as needed. SCDs and DVT prophylaxis have been ordered as well. I anticipate we will monitor her for the next 48 hours. If there is no significant improvement, we will approach regarding hospice care. I have discussed with Dr. Roman, her primary care physician, as well. He is in agreement with the plan as well. #[id number] [facility]
[2020-07-04] MEDS ORDERED: IV SET AND CAP CHANGE INJ INJ SCH (17:00)
[2020-07-04] MEDS: LACTATED RINGERS 1,000 ML IVS PRN (18:26)
[2020-07-05] MEDS ORDERED: PANTOPRAZOLE SODIUM IV 40 MG VIAL ONE (04:18)
[2020-07-05] MEDS: PANTOPRAZOLE SODIUM IV 40 MG VIAL IV SCH (06:06)
[2020-07-05] MEDS: LACTATED RINGERS 1,000 ML IVS PRN ×2 (06:18→19:29)
[2020-07-05] MEDS ORDERED: ONDANSETRON INJ 4 MG/2 ML VIAL ONE (07:41)
[2020-07-05] MEDS ORDERED: ONDANSETRON INJ 4 MG/2 ML VIAL IV PRN (07:45)
[2020-07-05] MEDS: ASPIRIN (CHEWABLE) 81 MG TAB PO SCH (10:01)
--- NOTE | 2020-07-05 11:02 | MRI ---
EXAM DESCRIPTION: Brain w/o Contrast: MRI. CLINICAL HISTORY: CVA COMPARISON: CT scan of the head on July 04, 2020. MRI scan of the brain January 2015. TECHNIQUE: Multiplanar, high-field MRI unit, multiple diffusion sequences, multiple conventional sequences without contrast. Significantly limited study technically due to patient disorientation and motion. On the diffusion sequences, and FLAIR sequence are available. FINDINGS: Abnormal bright hyperintense signal on the diffusion SP 1000 sequences in the left temporal lobe, base of the left frontal lobe and anterior left parietal lobe, also involving the left external capsule. This is involving the distribution of the left middle cerebral artery. Also extending superiorly in the posterior left frontal lobe almost to the vertex. Similar hyperintensity signal, but smaller volume, in the junction of the posterior right temporal lobe, inferior right parietal lobe, and anterior right occipital lobe. This is a watershed area between the right middle cerebral artery and the right posterior cerebral artery. Smaller focal areas of abnormal hyperintense signal in the base of the right temporal lobe, and the vertex of the right parietal lobe and right occipital lobe. This is consistent with bilateral embolic infarctions. Minimally hyperintense FLAIR signal in the same regions as the diffusion abnormalities. No hemorrhage, no cerebral edema, no midline shift.. Normal signal in the bilateral basal ganglia. Normal signal in the brainstem and cerebellar hemispheres. Cortical sulci, ventricles, and other CSF spaces, and the subdural spaces are showing mild atrophy with no significant mass effect.. No effacement or displacement. No midline shift. No extra-axial hemorrhage. IMPRESSION: 1. Significantly limited study due to factors described above. 2. Bilateral acute/semiacute multiple foci of infarction with the largest involving the left temporal lobe, left frontal lobe, and left parietal lobe in the left middle cerebral artery distribution. Bilateral multifocal infarcts are consistent with embolic etiology for CVA. No acute hemorrhage, mass effect, or midline shift. 3. Chronic bilateral white matter ischemic changes similar to prior brain MRI scan January 2015. CRITICAL COMMUNICATION: The critical value was communicated directly by Dr. Duncan via phone call, with patient's inpatient nurse, [facility], at approximately 845 hours, on May 05, 2020. Electronically signed by: Amanuel Duncan MD 07/05/2020 11:00 AM [facility]
[2020-07-05] MEDS ORDERED: HALOPERIDOL LACTATE INJ 5 MG/ML VIAL ONE (11:23)
--- NOTE | 2020-07-05 13:21 | PN ---
SUPERVISING PHYSICIAN: Sukhjinder Martines MD DATE: 07/05/20 SUBJECTIVE: The patient is lying in bed, she is moaning. She does not make eye contact nor does she answer questions. She does moan a lot. Daughter is at the bedside, Elvira Leigh, SLOT FLOORMAN, and I spoke to her about patient's poor prognosis as well as testing and labs that have been done. We had a long discussion with her and her sister via telephone and we have planned to watch the patient overnight and if there is no change, she will most likely sent home on [facility]. OBJECTIVE: VITAL SIGNS: Temperature is 98.5, heart rate 66, blood pressure 191/94, after completion of her MRI and echocardiogram she is down to 119/74, respiratory rate 19, oxygen saturation 96% on room air. RESPIRATORY: Essentially clear to auscultation bilaterally. CARDIAC: Regular rate and rhythm. NEUROLOGICAL: She is awake but does not make eye contact. She moans and is quite agitated at times. LABORATORY: WBC 11.1, hemoglobin 13.6, hematocrit 39.3. Neutrophils 86.9, ESR 9, electrolytes are basically within normal limits. BUN 24, creatinine 1.31, hemoglobin A1C 5.1, triglyceride 103, LDL 133.6, HDL 71, TSH 0.19. Urine culture pending. Preliminary blood cultures show no growth. MRI of the brain showed: 1. Significantly limited study due to movement as well as other factors. 2. Bilateral acute semi-acute multiple foci of infarction with largest involving the left temporal lobe, left frontal lobe, left parietal lobe in the left middle cerebral artery distribution. Bilateral multifocal infarcts are consistent with embolic etiology or CVA. No acute hemorrhage, mass effect or midline shift. 3. Chronic bilateral white matter ischemia changes similar to prior brain MRI scan in January of 2015. Echocardiogram has been done and is pending report. ASSESSMENT: 1. Acute left-sided cerebrovascular accident, embolic in etiology. 2. Hypertension. 3. Altered mental status secondary to #1. 4. Acute kidney injury. 5. History of breast cancer status post mastectomy. PLAN: We will continue present supportive care. Will hold on any labs or films for tomorrow. We will monitor patient's neurological status as well as hold on placing an NG tube for now. After lengthy discussion with her daughters, they want the patient to be comfortable and they realize her prognosis is very poor. If her condition does not improve, she will be discharged home tomorrow to [facility]. #[id number] [facility]
[2020-07-05] MEDS: HALOPERIDOL LACTATE INJ 5 MG/ML VIAL IM PRN ×2 (16:28→23:25)
[2020-07-06] MEDS: PANTOPRAZOLE SODIUM IV 40 MG VIAL IV SCH (05:59)
[2020-07-06] MEDS ORDERED: MAGNESIUM SULFATE PREMIX 2GM 2 GM in PREMIX BAG 1 BAG IVPB ONE (06:40)
[2020-07-06] MEDS ORDERED: KCL 20MEQ/WATER FOR INJ 100ML 20 MEQ in PREMIX BAG 1 BAG IVPB ONE (06:48)
[2020-07-06] MEDS ORDERED: MAGNESIUM SULFATE PREMIX 2GM 50 ML IVPB ONE (07:38)
[2020-07-06] MEDS ORDERED: KCL 20MEQ/WATER FOR INJ 100ML 100 ML IVPB ONE (07:38)
[2020-07-06] MEDS: ASPIRIN (CHEWABLE) 81 MG TAB PO SCH (08:33)
[2020-07-06] MEDS: HALOPERIDOL LACTATE INJ 5 MG/ML VIAL IM PRN (10:38)
[2020-07-06 17:48] VITALS: BP 160/68; TEMP 97.7; O2SAT 94
--- NOTE | 2020-07-25 13:27 | DS ---
SUPERVISING PHYSICIAN: Sukhjinder Martines MD DISCHARGE DIAGNOSIS: 1. Left-sided cerebrovascular accident, embolic in etiology. 2. Hypertension. 3. Altered mental status secondary to #1. 4. Acute kidney injury. 5. History of breast cancer status post mastectomy. HISTORY OF PRESENT ILLNESS: This is an 89-year-old female patient who came to the Emergency Room after being found unresponsive by her granddaughter. She was apparently previously at 11 PM. She had a right sided facial droop, unable to move her right side and not conversing. She was brought to the Emergency Room and evaluated. CT scan was unremarkable. CT angiogram of the neck and head did not reveal any retrievable thrombus. Due to being outside the window for thrombolytics, she was not administered tPA. Telemedicine was done to consult with a neurologist regarding her care. Recommendations were for admission for stroke protocol, target systolic blood pressure less than 220, CT angiogram of the head and neck, which were already done, and MRI of the brain, which was ordered for the next day. Echocardiogram was also ordered. She was also to be given aspirin daily as well as SCDs and DVT prophylaxis. She was made a DNR, but her family did want to see if she regained any of her neurological status over the next 48 hours. HOSPITAL COURSE: The patient was placed in the hospital in observation and stroke protocol ordered. She was placed on aspirin and echocardiogram, MRI of the brain and NPO status were ordered. Initially, it was felt that they would place a feeding tube, but the family opted to wait until after her testing. The patient's neurologic status minimally improved to the point she was just moaning. There was no eye contact, nor any appropriate conversation. CHANDNI Pena, and I spoke to the family at length and they felt that it would be best for the patient to be discharged home and to be admitted to [facility]. They decided against placing an NG tube at this time. LABORATORY: CBC was basically unremarkable throughout her stay. ESR 9. She did have a slightly low magnesium of 1.7, potassium 3.2 and she did get some supplementation. Other than that, her metabolic panels were unremarkable. Urinalysis was unremarkable. MICROBIOLOGY: Preliminary blood cultures showed no growth after 3 days. Urine culture showed no growth. RADIOLOGY: Brain MRI showed 1) Significantly limited study due to factors described in the report. 2) Bilateral acute/semi-acute multiple foci of infarction with the largest involving the left temporal lobe, left frontal lobe and left parietal lobe and the left middle cerebral artery distribution, bilateral multifocal infarcts consistent with embolic etiology for CVA. No acute hemorrhage, mass effect or midline shift. 3) Chronic bilateral white matter ischemic changes similar to prior brain MRI in 2015. DISCHARGE PLAN: [facility] set up needed equipment at the patient's home and today she will be discharged home in stable condition with [facility] orders. All home medications will be discontinued at this time and can be reevaluated by hospice. Dr. Roman can be contacted for any concerns or complications. DISCHARGE MEDICATIONS: None. #[id number] [facility]
== END 2020-07-06 17:35 | disposition hospice, home (50) | DRG 65 ==
LOC: ER 13:04 → MS 16:56
PROVIDERS: ADMIT Nurse Practitioner; ATTEND Nurse Practitioner Acute Care
DX: I63.449 Cerebral infarction due to embolism of unspecified cerebellar artery (principal); N17.9 Acute kidney failure, unspecified; I10 Essential (primary) hypertension; E78.5 Hyperlipidemia, unspecified; F41.9 Anxiety disorder, unspecified; K58.9 Irritable bowel syndrome, unspecified; M51.36 Other intervertebral disc degeneration, lumbar region; Z88.0 Allergy status to penicillin